=== PATIENT | male | born 1960 | race Caucasian/White ===

== ENCOUNTER 2017-05-13 21:36 | Emergency (ER) | payer OTHER ==
[~2017-05-13] VITALS: Ht 175.3 cm; Wt 88.0 kg
[~2017-05-13 21:36] MED LIST: CLIN-73 PO; METF500T PO; TRAM50TA2 PO
[2017-05-13 21:40] VITALS: Ht 175.3 cm; Wt 88.0 kg
[2017-05-13] MEDS ORDERED: SULF1TAB31 PO (22:53)
[2017-05-13] MEDS ORDERED: CEPH-443 PO (22:53)
--- NOTE | 2017-05-13 22:55 | ERD ---
ER Documentation Chief Complaint Chief Complaint RIGHT MEDIAL ANKLE 3CM NECROTIC SKIN LESION X 2 DAYS FROM A SCRAP HPI 57-year-old male with history of type 1 diabetes mellitus presents 2 days status post laceration versus abrasion. Patient states that is becoming red around the edges. No increase in pain. Denies fever or chills. Has not taken any medications to relieve the symptoms. Patient has no other complaints and describes no other associated manifestations. Nursing notes have been reviewed and are consistent with history given. ROS All systems reviewed and are negative except as per history of present illness. Medications Home Meds Active Scripts Sulfamethoxazole/Trimethoprim* (Bactrim Ds* Tablet) 1 Each Tablet, 1 TAB PO BID , #14 TAB Prov:YIFAN SIMPSON PA-C 05/13/17 Cephalexin* (Keflex*) 500 Mg Capsule, 500 MG PO QID for 5 Days, CAP Prov:YIFAN SIMPSON PA-C 05/13/17 Metformin Hcl (Glucophage) 500 Mg Tablet, 500 MG PO WITH BREAKFAST, #10 TAB Prov:EMILI ESPARZA MD 12/11/15 Tramadol HCl (Tramadol HCl) 50 Mg Tablet, 50 MG PO TID Y for PAIN, #12 TAB Prov:EMILI ESPARZA MD 12/11/15 Clindamycin Hcl* (Clindamycin Hcl*) 300 Mg Capsule, 300 MG PO Q6, #20 CAP Prov:EMILI ESPARZA MD 12/11/15 Allergies Allergies: Coded Allergies: No Known Allergy (Unverified , 12/11/15) PMhx/Soc Medical and Surgical Hx: pt denies Medical Hx, pt denies Surgical Hx History of Surgery: No Anesthesia Reaction: No Hx Neurological Disorder: No Hx Respiratory Disorders: No Hx Cardiac Disorders: Yes (HTN) Hx Psychiatric Problems: No Hx Miscellaneous Medical Probl: Yes (DM ) Hx Alcohol Use: Yes Hx Substance Use: No Hx Tobacco Use: No Smoking Status: Never smoker Physical Exam Vitals Vital Signs Date Time Temp Pulse Resp B/P Pulse Ox O2 Delivery O2 Flow Rate FiO2 05/13/17 21:40 98.1 97 18 175/95 99 Physical Exam Const: Well-appearing 57-year-old male in no acute distress Head: Atraumatic Eyes: Normal Conjunctiva Resp: Clear to auscultation bilaterally Cardio: Regular rate and rhythm, no murmurs Back: No midline or flank tenderness Ext: No cyanosis, or edema. 2 cm abrasion that is well-appearing with scab over area. No induration. No discharge. No fluctuance. No TTP. Full range of motion. Cap refill less than 2 seconds. No ulcers identified. Neur: Awake and alert Psych: Normal Mood and Affect Procedures/MDM 57-year-old male with history of type 1 diabetes mellitus presents with a chief complaints of scab. Patient scab is well-appearing. I have no suspicion for infection. Patient will be given antibiotics prophylactically due to history of type 1 diabetes mellitus. I recommend follow-up with PCP in the next 2-3 days. I have spoke with the patient regarding their condition and future management. They have verbally responded that they understand their status and treatment plan. The patients vitals are stable, and their current condition is appropriate for discharge. The patient will be given discharge instructions with return precautions. Departure Diagnosis: Primary Impression: Cellulitis and abscess of buttock Additional Impression: Abrasion Condition: Stable Patient Instructions: Abrasion Additional Instructions: Follow up with your PCP within the next 1-3 days for a more thorough evaluation and a possible referral to a specialist. Return the the emergency department immediately if symptoms worsen or change. If you have any questions regarding medications, ask your pharmacist or us before you leave. If any adverse reactions occur while taking your medications, discontinue the treatment and return to the emergency department immediately. Take your medications as directed, and complete the entire course of treatment. YIFAN SIMPSON PA-C May 13, 2017 22:55
== END 2017-05-13 23:00 | disposition home or self-care (01) ==
LOC: FTE 21:36
DX: L03.317 Cellulitis of buttock (principal); L02.31 Cutaneous abscess of buttock; I10 Essential (primary) hypertension; E11.9 Type 2 diabetes mellitus without complications; X58.XXXA Exposure to other specified factors, initial encounter; Y92.9 Unspecified place or not applicable; Z79.84 Long term (current) use of oral hypoglycemic drugs
CPT/HCPCS: 99284